=== PATIENT | male | born 1980 | race Caucasian/White ===

== ENCOUNTER → 2020-05-29 13:48 | Outpatient (BNVA) | payer BC, SELFPAY | PROVIDERS: Family Provider Family Medicine; PCP Family Medicine; Visit Provider Nurse Practitioner | DX: Z20.828 Contact with and (suspected) exposure to other viral communicable diseases (principal) | CPT/HCPCS: 87635 ==

== ENCOUNTER → 2021-03-03 15:56 | Outpatient (BNVA) | payer BC, SELFPAY | PROVIDERS: Family Provider Family Medicine; PCP Family Medicine; Visit Provider Family Medicine | DX: R53.83 Other fatigue (principal) | CPT/HCPCS: 84402; 84403 ==

== ENCOUNTER 2021-12-18 11:51 | Emergency (ER) | payer BC, SELFPAY ==
[2021-12-18 11:56] VITALS: BP 153/91; PULSE 78; RESP 16; TEMP 36.4; O2SAT 97
--- NOTE | 2021-12-18 12:16 | ED_ITS ---
HPI - General Adult General: Chief complaint: Skin/Abscess/Foreign Body Stated complaint: rash Time Seen by Provider: 12/18/21 12:06 History of Present Illness: Patient is a 41-year-old male who was exposed to poison oak 6 or 7 days ago while cleaning his car presenting to the emergency room with worsening itchiness and spreading lesion. Patient tells me that he was able to identify the plan as poison oak and since then has been taking Benadryl without any relief of symptoms. Due to significant itching patient came to the emergency room. Patient requests for steroids at this time. Denies nauesea/vomiting, fever/chill, chest pain, shortness of breath, abdominal pain, dysuria/hematuria/polyuria, diarrhea/melena/hematochezia. Onset:6-7 days ago Duration:6-7 days Location:home Severity:mild Associated symptoms: Reports rash; Deny chest pain, dyspnea, nausea, palpitations or vomiting Review of Systems Const: Denies: fever(s) or chills Eyes: Denies: change in vision ENMT: Denies: mouth pain Card: Denies: chest pain or palpitations Resp: Denies: dyspnea or non-productive cough GI: Denies: abdominal pain, nausea, vomiting or diarrhea : Denies: dysuria Musc: Denies: extremity pain Skin/Breast: Reports: rash and new lesions (+wheals over the L leg) Neuro: Denies: weakness in extremities Psych: Reports: other (Normal mood) Kelby/Lymph: Denies: easy bruising PFS ED PFSH: Medical History History of 2019 novel coronavirus disease (COVID-19) Surgical History (Updated 07/13/20 @ 10:35 by Lo Jackson DO) No pertinent past surgical history Family History Other Hyperlipidemia Social History Smoking and tobacco status: former smoker Alcohol intake: current Alcohol intake frequency: holidays/special occasions only Physical Exam Const: COMMON NORMALS: alert HENMT: COMMON NORMALS: atraumatic HEAD & SCALP: atraumatic MOUTH: moist mucous membranes not abnormal Eye: COMMON NORMALS: EOMs intact bilaterally and conjunctivae normal CONJUNCTIVA: Yes conjunctivae normal Neck/C-Spine: COMMON NORMALS: full ROM and supple Resp: COMMON NORMALS: normal respiratory effort and clear to auscultation bilaterally AUSCULTATION: clear to auscultation bilaterally Cardio: COMMON NORMALS: regular rate RATE: regular rate GI: COMMON NORMALS: Soft to palpation and non-tender PALPATION: Yes Soft to palpation Extremity: COMMON NORMALS: full ROM Neuro: SENSORIUM/ORIENTATION: Yes alert MOTOR EXAM: No Abnormal motor strength present and Other motor observations present (no focal motor deficits) Psych: COMMON NORMALS: speech normal SPEECH: Yes normal speech MOOD & AFFECT: Yes euthymic mood Skin: NARRATIVE SKIN EXAM: +mulitple nonconfluent erythematous mild wheals over the L leg with mild excoriation Course Vital Signs: Vital signs: Vital Signs Temperature 97.6 F 12/18/21 11:56 Pulse Rate 78 12/18/21 11:56 Respiratory Rate 16 12/18/21 11:56 Blood Pressure 153/91 12/18/21 11:56 Pulse Oximetry 97 12/18/21 11:56 MDM - General Adult Medical Decision Making 41-year-old male presented to the emergency room for concerns of pruritus after being exposed to poison oak. On physical exam, patient has mild indurated erythema that is nonconfluent over the left leg. Patient was prednisone 60 mg in the emergency room. Instructed patient to pe rform symptom relief with Oatmeal baths, Cool, wet compresses, and Ice packs. Rx prednisone 50mg x 5 days for pruritis and contact dermatitis Disposition: Discharge. Patient counseled regarding diagnostic impression, treatment plan. Patient given ED strict return precautions to return for continuation, worsening, or development of new symptoms. Instructed to f/u w/ PCP regarding symptoms today. Patient verbalized understanding. Discharge Plan Discharge Patient Disposition: Home Clinical Impression: Contact dermatitis due to poison oak Condition: Stable Prescriptions: New Biofreeze (menthol) 5 % gel 1 ea topical BID PRN (Reason: pain) 10 Days Qty: 1 0RF prednisone 50 mg tablet 50 mg PO DAILY PRN (Reason: contact dermatitis) 5 Days Qty: 5 0RF Discharge Orders: Discharge ED (Routine); Ordered 12/18/21 Ordered By: Isabella Galvez Discharge Diet: Advance as tolerated Discharge Activity: Increase activity as tolerated Activity Restrictions/Additional Instructions: Please consider the following: * Oatmeal baths * Cool, wet compresses * Ice packs * Aluminum acetate (Burow's solution) Coding Level of Care Code ED 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
[2021-12-18] MEDS: predniSONE 20 mg Tablet 60 MG PO (12:51)
== END 2021-12-18 12:57 | disposition home or self-care (01) ==
PROVIDERS: Emergency Provider Emergency Medicine
DX: L23.7 Allergic contact dermatitis due to plants, except food (principal)
CPT/HCPCS: 99283; J7512

== ENCOUNTER → 2022-01-02 17:03 | Outpatient (BNVA) | payer BC, SELFPAY | PROVIDERS: Visit Provider Registered Nurse Neonatal Intensive Care | DX: S92.501A Displaced unspecified fracture of right lesser toe(s), initial encounter for closed fracture (principal); W22.01XA Walked into wall, initial encounter | CPT/HCPCS: 73630 ==

== ENCOUNTER → 2023-01-25 08:29 | Outpatient (BNVA) | payer BC, SELFPAY | PROVIDERS: Visit Provider Family Medicine | DX: R53.83 Other fatigue (principal) | CPT/HCPCS: 80053; 80061; 84403; 84439; 84443; 85025 ==

== ENCOUNTER 2024-12-05 11:55 | Emergency (ER) | payer BC, SELFPAY ==
--- OUTSIDE RECORDS SUMMARY | 2024-09-15 05:00 | XMS_ITS ---
Author Organization [facility] Address [address] [place] [address] Care Team Providers Care Clothing Sales Assistant Name Role Phone None, None Primary Care Provider INEZ Proctor Unavailable [phone] Allergies No Known Allergies REASON FOR VISIT [INEZ] 4-MON. F/U Medications Medication SIG (Take, Route, Frequency, Duration) Notes Start Date End Date Status Testosterone Cypionate 200 MG/ML 1 mL Intramuscular Every 14 Days; Duration: 90 days Please supply patient with all appropriate injection supplies with multiple 1-3ccsyringes, multiple 18 gauge draw needles, and multiple 23 injection gauge needles 1 in. Provide appropriate alcohol prep pads. Nikolay Bell LPN 06/02/2024 03:50:42 PM [employer] > to include injection supplies, may alter to vials available 06/02/2024 Active Anastrozole 1 MG 0.5 tablet Orally twice a week; Duration: 30 days 09/15/2024 11/14/2024 Active Testosterone Cypionate 200 MG/ML 0.25 mL Intramuscular twice a week; Duration: 7 days Please supply patient with all appropriate injection supplies with multiple 1 ml syringes, multiple 18 gauge draw needles, and multiple 23 injection gauge needles 1 in. Provide appropriate alcohol prep pads. 09/15/2024 Active Social History Tobacco Use: Social History Observation Description Date Details (start date - stop date) Former Smoker 1996 - 1998 Tobacco Control (Standard) Question Answer Notes Tobacco use: Former smoker When did you start smoking? 1996 When did you stop smoking? 1998 How long has it been since you last smoked? 5-10 years Vital Signs Blood pressure systolic 128 mm Hg 09/16/19 25 Blood pressure diastolic 70 mm Hg 025 Heart Rate 84 /min 09/15/2024 Height 70 in 09/15/2024 Weight 213.4 lbs 09/15/2024 BMI 30.62 kg/m2 09/15/2024 Oximetry 99 % 09/15/2024 Encounters Encounter Location Date Provider Diagnosis [facility] [address] [facility] [place] [address] 09/15/2024 INEZ SYED Hypogonadism in male E29.1 ; Chronic fatigue, unspecified R53.82 and Exercise counseling Z71.82 Assessments Encounter Date Diagnosis (ICD Code) Assessment Notes Treatment Notes Treatment Clinical Notes Section Notes 09/15/2024 Hypogonadism in male (ICD-10 - E29.1) The patient and I agree on continuing with agreed regimen of TRT with t. cypionate, but will adjust dosage from 200mg/0.5cc every 7 to 0.25 twice weekly to see if helping labs and symptoms. Discussed labs that were completed prior to this office visit. Will also start patient on 0.5mg anastrazole twice weekly. Will reassess at next office visit. We reviewed these in detail today. We again discussed diet and exercise and the importance of this, and patient reports to be trying to better this. We discussed risks vs benefits on TRT, especially assisted supplementation. For now, no need for further intervention or workup. Plan is to have patient return care in 3-4 months with repeat surveillance labs and continued reassessment. Vitals continue to remain stable. No new complaints mentioned. Through shared decision making, we are in agreement with this plan. All questions that were asked, were answered, and he is satisfied with this plan. He understands to return care sooner if needed. 09/15/2024 Chronic fatigue, unspecified (ICD-10 - R53.82) The patient and I agree on continuing with agreed regimen of TRT with t. cypionate, but will adjust dosage from 200mg/0.5cc every 7 to 0.25 twice weekly to see if helping labs and symptoms. Discussed labs that were completed prior to this office visit. Will also start patient on 0.5mg anastrazole twice weekly. Will reassess at next office visit. We reviewed these in detail today. We again discussed diet and exercise and the importance of this, and patient reports to be trying to better this. 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 For now, no need for further intervention or workup. Plan is to have patient return care in 3-4 months with repeat surveillance labs and continued reassessment. Vitals continue to remain stable. No new complaints mentioned. Through shared decision making, we are in agreement with this plan. All questions that were asked, were answered, and he is satisfied with this plan. He understands to return care sooner if needed. 09/15/2024 Exercise counseling (ICD-10 - Z71.82) The patient and I agree on continuing with agreed regimen of TRT with t. cypionate, but will adjust dosage from 200mg/0.5cc every 7 to 0.25 twice weekly to see if helping labs and symptoms. Discussed labs that were completed prior to this office visit. Will also start patient on 0.5mg anastrazole twice weekly. Will reassess at next office visit. We reviewed these in detail today. We again discussed diet and exercise and the importance of this, and patient reports to be trying to better this. 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 For now, no need for further intervention or workup. Plan is to have patient return care in 3-4 months with repeat surveillance labs and continued reassessment. Vitals continue to remain stable. No new complaints mentioned. Through shared decision making, we are in agreement with this plan. All questions that were asked, were answered, and he is satisfied with this plan. He understands to return care sooner if needed. Plan Of Treatment Medication Medication Name Sig Start Date Stop Date Notes Anastrozole 1 MG 0.5 tablet Orally twice a week; Duration: 30 days 09/15/2024 11/14/2024 Testosterone Cypionate 200 MG/ML 0.25 mL Intramuscular twice a week; Duration: 7 days 09/15/2024 Please supply patient with all appropriate injection supplies with multiple 1 ml syringes, multiple 18 gauge draw needles, and multiple 23 injection gauge needles 1 in. Provide appropriate alcohol prep pads. Pending Test Test Name Order Date TESTOSTERONE, FREE, BIOVAILA BLE AND TOTAL, MALES (ADULT), IMMUNOASSAY (00075) 09/15/2024 HEPATIC FUNCTION PANEL (04226) CBC (H/H, RBC, INDICES, WBC, PLT) (1759) 09/15/2024 ESTRADIOL (4021) 09/15/2024 PSA, TOTAL (5363) 09/15/2024 Next Appt Details Follow Up: 3-4 months w. lab s, Reason: Provider Name:INEZANGIE SYED, 01/08/2025 10:45:00 AM, [address] [place] [address], [id number], Progress Notes * Ed LEA BDOB:1979 (44 yo M)Acc No.[id number]:09/15/2024 Progress Notes Patient: Ed SALAZAR Provider: April Syed NP :1980 A ge:44 Y S ex:Male Date:09/15/2024 Address:[address] [place], [place] [id number] Subjective: * Chief Complaints: * 1 . [INEZ] 4-MON. F/U. * HPI: * : 44 yo male, yo male, nonsmoker, previously here due to symptoms of chronic fatigue, low libido, and decreased mood. Continues to deny bothersome ED or LUTS. Based on low T labs and symptoms, he was started on TRT with T. cypionate at 200mg every 14 days on 05/2024. Here today for 3-4 month f/u with labs and symptom reassessment. No interval issues or changes. He reports started completing injections weekly at 0.5cc. He also reports of increased moodiness/emotional. H e reports symptoms to be improved. TT level at 390 with normal safety labs (scanned in). He reports to continually trying to improve exercise and diet regimen. * ROS: G eneral / Constitutional: Patient denies chills, fever, change in appetite. A&O Gastrointestinal: Patient denies abdominal pain, nausea, vomiting, diarrhea. Genitourinary: Comments See HPI for details. * Medical History: L ow Libido, Chronic Fatigue. * Surgical History: O ral Surgery 2008. * Family History: F ather: alive, prostate cancer. M other: alive. * Social History: T obacco Use: T obacco Control (Standard) T obacco use: F ormer smoker, W kyle did you start smoking? 1 06/21/1995, W hen did you stop smoking? 1 06/21/1997, H ow long has it been since you last smoked? 5 -10 years. * Medications: T aking Testosterone Cypionate 200 MG/ML Solution 1 mL Intramuscular Every 14 Days Please supply patient with all appropriate injection supplies with multiple 1-3ccsyringes, multiple 18 gauge draw needles, and multiple 23 injection gauge needles 1 in. Provide appropriate alcohol prep pads., Notes to Pharmacist: Nikolay Bell LPN 06/02/2024 03:50:42 PM [employer] > to include injection supplies, may alter to vials available, Medication List reviewed and reconciled with the patient * Allergies: N .K.D.A. Objective: * Vitals: H R:84/min, BP:128/70mm Hg, Wt:213.4lbs, BMI:30.62Index, Ht: 70 in, Oxygen sat %:99%, Ht-cm: 177.8 cm, Wt-k.8 kg. * P ast Orders: Lab:FSH AND LH (7137) * Collection Date 08/30/2024 05/26/2024 Collection Time 06:35 AM 10:00 AM Order Date 08/29/2024 05/26/2024 FSH <0.7 L (Ref Range: 1.4-12.8 mIU/mL) 3.8 (Ref Range: 1.4-12.8 mIU/mL) LH 0.2 L (Ref Range: 1.5-9.3 mIU/mL) 3.3 (Ref Range: 1.5-9.3 mIU/mL) * Lab:ESTRADIOL (4021) * Collection Date 08/30/2024 05/26/2024 Collection Time 06:35 AM 10:00 AM Order Date 08/29/2024 05/26/2024 ESTRADIOL 42 H (Ref Range: < OR = 39 pg/mL) 16 (Ref Range: < OR = 39 pg/mL) * Lab:PROLACTIN (746) * Collection Date 08/30/2024 05/26/2024 Collection Time 06:35 AM 10:00 AM Order Date 08/29/2024 05/26/2024 PROLACTIN 10.4 (Ref Range: 2.0-18.0 ng/mL) 7.5 (Ref Range: 2.0-18.0 ng/mL) ???Lab:TESTOSTERONE, FREE (DIALYSIS) AND TOTAL,MS (40226) (Order Date - 08/29/2024) (Collection Date & Time - 08/30/2024 06:35 AM)?Value Reference Range?TESTOSTERONE, TOTAL, [id number] - ng/dL ?TESTOSTERONE, FREE65.335.0-155.0 - pg/mL?Notes: [employer], support 09/06/2024 11:05:08 : This order was created by the Interface. * Examination: G eneral Examination: GENERAL APPEARANCE: a lert, well hydrated, in no distress.? HEAD: n ormocephalic. EYES: P ERRL. SKIN: g ood turgor, warm, and dry. HEART: n o signs of abnormalities. LUNGS: n o signs of distress. ABDOMEN: n ormal, soft, nontender, nondistended. MALE GENITOURINARY: r efer to the HPI and Assessment/Plan.? MUSCULOSKELETAL: f ull ROM. EXTREMITIES: n ormal. PERIPHERAL PULSES: n ormal. NEUROLOGIC: A &O. Assessment: * Assessment: 1. H ypogonadism in male - E29.1 (Primary) 2 . C hronic fatigue, unspecified - R53.82 3 . E xercise counseling - Z71.82 The patient and I agree on c ontinuing with agreed regimen of TRT with t. cypionate, but will adjust dosage from 200mg/0.5cc every 7 to 0.25 twice weekly to see if helping labs and symptoms. Discussed labs that were completed prior to this office visit. Will also start patient on 0.5mg anastrazole twice weekly. Will reassess at next office visit. Mya curiel reviewed these in detail today. We again discussed diet and exercise and the importance of this, and patient reports to be trying to better this. 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 For now, no need for further intervention or workup. Plan is to have patient return care in 3-4 months with repeat surveillance labs and continued reassessment. Vitals continue to remain stable. No new complaints mentioned. Through shared decision making, we are in agreement with this plan. All questions that were asked, were answered, and he is satisfied with this plan. He understands to return care sooner if needed. Plan: * Treatment: * Follow Up: 3 -4 months w. labs * Billing Information: * Visit Code: 19528 Office Visit, Est Pt., Level 3. Modifiers: 25 * Procedure Codes: * Electronic signature of MARY ALICE SYED APRN on 12/05/2024 at 12:11 PM CDT Sign off status: Pending * Provider: April Syed NP Date: 0 09/15/2024 Generated for Jeannette alcantara/Catia/Jones on: 0 12/05/2024 12:11 PM CDT History and Physical Notes * Examination Category Sub-Category Detail Notes Category Not es General Examination GENERAL APPEARANCE: alert, w ell hydrated, in no distress HEAD: normocephalic EYES: PERRL HEART: no signs of abnormal ities LUNGS: no signs of distress ABDOMEN: normal, soft, nonten parker, nondistended NEUROLOGIC: A&O SKIN: good turgor, warm, a nd dry EXTREMITIES: normal PERIPHERAL PULSES: normal MUSCULOSKELETAL: full ROM MALE GENITOURINARY: refer to the HPI and Assessment/Plan
--- OUTSIDE RECORDS SUMMARY | 2024-09-22 03:45 | XMS_ITS ---
Author Organization [facility] [employer] Address [address] [place] [id number] Care Team Providers Care Knocker Off Name Role Phone None, None Primary Care Provider INEZ Proctor Unavailable [phone] REASON FOR VISIT [INEZ] LABS Encounters Encounter Location Date Provider Diagnosis [facility] [address] [place] [address] 09/22/2024 INEZ SYED Plan Of Treatment Next Appt Details Provider Name:INEZ SYED, 01/08/2025 10:45:00 AM, [address] [place] [address], [place], [phone], Progress Notes * Ed LEA BDOB:1979 (44 yo M)Acc No.[id number]:09/22/2024 Progress Note Patient: Thiago SALAZARemy Lisset Provider: April Syed NP :1980 A ge:44 Y S ex:Male Date:09/22/2024 Address:[address] [place], [place] [id number] Subjective: * Chief Complaints: * 1 . [INEZ] LABS. * Medical History: Objective: * Vitals: Assessment: Plan: * Treatment: * Billing Information: * Visit Code: * Procedure Codes: * Electronic signature of MARY ALICE SYED APRN on 12/05/2024 at 12:11 PM CDT Sign off status: Pending * Provider: April Syed NP Date: 0 09/22/2024 Generated for Jeannette alcantara/Catia/Jones on: 0 12/05/2024 12:11 PM CDT
--- OUTSIDE RECORDS SUMMARY | 2024-12-05 12:11 | XMS_ITS | Clinical Summary ---
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
--- OUTSIDE RECORDS SUMMARY | 2024-12-05 12:11 | XMS_ITS | Patient Health Record ---
Author Organization [employer] Address [address] [place] [address] Care Team Providers Care Bulb Sorter Name Role Phone None, None Primary Care Provider Unavailtemitope INEZ Guzman Unavailable [phone] Naina Amanda Unavailable [phone] Allergies No Known Allergies Results Component Value Reference Range Notes TESTOSTERONE, FREE, BIOAVAIL ABLE AND TOTAL, MS (03593) Reviewed date:05/30/2024 10:44:11 AM Interpretation: Performing Lab:Z[facility], 24x7 [facility] [address], [address], R[place]midMG[address] Silvia Bailey MD,PhD Notes/Report: 0 0 0 0 ALBUMIN 4.7 3.6-5.1 g/dL SEX HORMONE BINDING GLOBULIN 20.9 10-50 nmol/L TESTOSTERONE, FREE 45.5 46.0-224.0 pg/mL TESTOSTERONE,BIOAVAILABLE 97.6 110.0-575.0 ng/ dL TESTOSTERONE, TOTAL, MS 573 726-4022 ng/dL Men with clinically significant hypogonadal symptoms and testosterone values repeatedly in the range of the 200-300 ng/dL or less, may benefit from testosterone treatment after adequate risk and benefits counseling. For additional information, please refer to https://education.[employer].com/faq/GGB884 (This link is being provided for informational/educational purposes only.) (Note) This test was developed and its analytical performance characteristics have been determined by [facility]. It has not been cleared or approved by the FDA. This assay has been validated pursuant to the CLIA regulations and is used for clinical purposes. [facility] [address] [address],[address] [facility] [address] Silvia Bailey MD, PhD FSH AND LH (7137) Reviewed date:05/30/2024 10:44:16 AM Interpretation: Performing Lab:[facility] ESP[facility]-Ywyezm27688 Khloe Moss[address] Niyah De Oliveira MD Notes/Report: 0 0 0 0 FSH 3.8 1.4-12.8 mIU/mL LH 3.3 1.5-9.3 mIU/mL ESTRADIOL (4021) Reviewed date:05/30/2024 10:44:19 AM Interpretation: Performing Lab:Ricardo ESPARZAa101Khloe Orourke[address] Niyah De Oliveira MD Notes/Report: 0 0 0 0 ESTRADIOL 16 < OR = 39 pg/mL Reference range established on post-pubertal patient population. No pre-pubertal reference range established using this assay. For any patients for whom low Estradiol levels are anticipated (e.g. males, pre-pubertal children and hypogonadal/post-menopausal females), the [facility] Estradiol, Ultrasensitive, LCMSMS assay is recommended (order code 62673). Please note: patients being treated with the drug fulvestrant (Faslodex(R)) have demonstrated significant interference in immunoassay methods for estradiol measurement. The cross reactivity could lead to falsely elevated estradiol test results leading to an inappropriate clinical assessment of estrogen status. iFit order code [id number]-Ucruztvux, Ultrasensitive LC/MS/MS demonstrates negligible cross reactivity with fulvestrant. PROLACTIN (746) Reviewed date:05/30/2024 10:44:13 AM Interpretation: Performing Lab:[facility] ESPARZAa10101 Khloe Moss[address] Niyah De Oliveira MD Notes/Report: 0 0 0 0 PROLACTIN 7.5 2.0-18.0 ng/mL FSH AND LH (7137) Reviewed date:09/10/2024 02:58:05 PM Interpretation: Performing Lab:Ricardo ESPARZAa1Khloe Maradiaga[address] Niyah De Oliveira MD Notes/Report: 0 0 0 FSH <0.7 1.4-12.8 mIU/mL LH 0.2 1.5-9.3 mIU/mL ESTRADIOL (4021) Reviewed date:09/10/2024 02:58:10 PM Interpretation: Performing Lab:[facility] ESP[facility]ZA-Egxgrv08576 [address] MossRxuyoeIJ[address] Niyah De Oliveira MD Notes/Report: 0 0 0 ESTRADIOL 42 < OR = 39 pg/mL Reference range established on post-pubertal patient population. No pre-pubertal reference range established using this assay. For any patients for whom low Estradiol levels are anticipated (e.g. males, pre-pubertal children and hypogonadal/post-menopausal females), the [facility] Estradiol, Ultrasensitive, LCMSMS assay is recommended (order code 16527). Please note: patients being treated with the drug fulvestrant (Faslodex(R)) have demonstrated significant interference in immunoassay methods for estradiol measurement. The cross reactivity could lead to falsely elevated estradiol test results leading to an inappropriate clinical assessment of estrogen status. iFit order code 55191-Rrbpycxre, Ultrasensitive LC/MS/MS demonstrates negligible cross reactivity with fulvestrant. NO COLLECTION DATE RECEIVED. WE HAVE USED THE DATE THE SPECIMEN WAS RECEIVED BY THIS LABORATORY THE COLLECTION DATE. IF THIS IS INCORRECT, PLEASE CONTACT CLIENT SERVICES. PHONE NUMBER: [phone] PROLACTIN (164) Reviewed date:09/10/2024 02:58:01 PM Interpretation: Performing Lab:[facility]-Qlwkkc[address] Domingo MossUjmhucSS[address] Niyah De Oliveira MD Notes/Report: 0 0 0 PROLACTIN 10.4 2.0-18.0 ng/mL TESTOSTERONE, FREE (DIALYSIS ) AND TOTAL,MS (42298) Reviewed date:09/10/2024 02:57:57 PM Interpretation: Performing Lab:[facility], [facility] [address], [address], UdgtczspqfRT[address] Silvia Bailey MD,PhD Notes/Report: 0 TESTOSTERONE, TOTAL, MS 845 [address]-4706 ng/dL Men with clinically significant hypogonadal symptoms and testosterone values repeatedly in the range of the 200-300 ng/dL or less, may benefit from testosterone treatment after adequate risk and benefits counseling. For additional information, please refer to https://education.[employer].com/faq/RXH465 (This link is being provided for informational/educational purposes only.) (Note) This test was developed and its analytical performance characteristics have been determined by [facility]. It has not been cleared or approved by the FDA. This assay has been validated pursuant to the CLIA regulations and is used for clinical purposes. TESTOSTERONE, FREE 65.3 35.0-155.0 pg/mL (Note) This test was developed and its analytical performance characteristics have been determined by [facility]. It has not been cleared or approved by the FDA. This assay has been validated pursuant to the CLIA regulations and is used for clinical purposes. [facility] [address] [address],[address] [facility] [address] Silvia Bailey MD, PhD NO COLLECTION DATE RECEIVED. WE HAVE USED THE DATE THE SPECIMEN WAS RECEIVED BY THIS LABORATORY THE COLLECTION DATE. IF THIS IS INCORRECT, PLEASE CONTACT CLIENT SERVICES. PHONE NUMBER: [phone] Reason For Referral No Information Medications Medication SIG (Take, Route, Frequency, Duration) Notes Start Date End Date Status Needle (Disp) 18G X 1 Draw medication with this needle then change to 22 gauge needle for intramuscular injection; Duration: 90 days 10/20/2024 Active Testosterone Cypionate 200 MG/ML 1 mL Intramuscular Every 14 Days; Duration: 90 days Please supply patient with all appropriate injection supplies with multiple 1-3ccsyringes, multiple 18 gauge draw needles, and multiple 23 injection gauge needles 1 in. Provide appropriate alcohol prep pads. Nikolay Bell LPN 06/02/2024 03:50:42 PM MEDICAL ASSISTANT SECRETARY > to include injection supplies, may alter to vials available 06/02/2024 Active Syringe (Disposable) 3 ML as directed; Duration: 90 days 10/20/2024 Active Needle (Disp) 22G X 1 Inject Testosterone Intramuscularly As Directed; Duration: 90 days 10/20/2024 Active Testosterone Cypionate 200 MG/ML 0.25 mL [...] been since you last smoked? 5-10 years Problems Problem Type SNOMED Code ICD Code Onset Dates Problem Status W/U Status Risk Notes Problem Chronic fatigue syndrome (disorder) (56269304) Chronic fatigue, unspecified (R53.82) Active confirmed Problem Male hypogonadism (25372314) Hypogonadism in male (E29.1) Active confirmed Vital Signs Heart Rate 84 /min 09/15/2024 Oximetry 99 % 09/15/2024 Blood pressure diastolic 70 mm Hg 09/15/2024 Height 70 in 09/15/2024 Blood pressure systolic 128 mm Hg 09/15/2024 Weight 213.4 lbs 09/15/2024 BMI 30.62 kg/m2 09/15/2024 Encounters Encounter Location Date Provider Diagnosis [facility] [address] [facility] [place] [address] 05/26/2024 INEZ PEVRIL [facility] [address] [facility] [place] [address] 05/26/2024 INEZ PEVRIL Hypogonadism in male E29.1 ; Chronic fatigue, unspecified R53.82 and Exercise counseling Z71.82 [facility] [address] [facility] [place] [address] 09/15/2024 INEZ PEVRIL Hypogonadism in male E29.1 ; Chronic fatigue, unspecified R53.82 and Exercise counseling Z71.82 [facility] [address] [facility] [place] [address] 08/29/2024 Naina [place] Hypogonadism in male E29.1 [facility] [address] [facility] [place] [address] 05/30/2024 INEZ PEVRIL Hypogonadism in male E29.1 [facility] [address] [facility] [place] [address] 06/09/2024 Naina [place] [facility] [address] [facility] [place] [address] 06/30/2024 Naina Vasiliy [facility] [address] [facility] [place] [address] 06/30/2024 Naina [place] [facility] [address] [facility] [place] [address] 08/21/2024 Naina Vasiliy [facility] [address] [facility] [place] [address] 08/29/2024 Naina Vasiliy Chronic fatigue, unspecified R53.82 and Hypogonadism in male E29.1 [facility] [address] [facility] [place] [address] 10/15/2024 INEZ SYED [facility] [address] [facility] [place] [address] 08/14/2024 Naina Vasiliy Assessments Encounter Date Diagnosis (ICD Code) Assessment Notes Treatment Notes Treatment Clinical Notes Section Notes 05/26/2024 Chronic fatigue, unspecified (ICD-10 - R53.82) We discussed the concept behind his hypogonadal symptoms in detail. We discussed on gaining lab work prior to moving forward with TRT and discussed on aua guidelines require for testosterone deficiency. Patient is interested in starting with TRT if appropriate. I reviewed all side effects of TRT depending on which route is agreed upon including: mood swings, hot flashes, acne, weight gain, increase blood counts, worsening sleep apnea, prostate growth, among others. We discussed risks vs benefits on testosterone supplementation especially intermodal customer service supplementation including close surveillance and follow up with repeat lab. If starting on TRT, we will plan for appropriate followup and for reevaluation with continued mentioned safety labs. Previous labs were reviewed, and patient needs confirmation with repeat labs. He is possibly interested in moving forward with testopel if that is an option. All ways of administration were discussed in detail including jatenzo versus kyzatrex, injections, testosterone pellets, and/or topicals. Pending insurance and financial constraints, patient is leaning towards starting TRT if he meets guideline criteria. Labs will be completed today, and I will call him with results, and schedule followup at that time. Patient now understands the importance of appropriate diet and exercise regimen. For now, and through shared decision making we are in agreement with no further workup or intervention at this time with care plan, aside from what was mentioned. Vitals checked. History reviewed. Exam as mentioned above. Patient has no other voiced concerns or questions. Patient will call back or return care sooner if further issues/questions. All questions that were asked, were answered. Patient satisfied with plan. 05/26/2024 Hypogonadism in male (ICD-10 - E29.1) We discussed the concept behind his hypogonadal symptoms in detail. We discussed on gaining lab work prior to moving forward with TRT and discussed on aua guidelines require for testosterone deficiency. Patient is interested in starting with TRT if appropriate. I reviewed all side effects of TRT depending on which route is agreed upon including: mood swings, hot flashes, acne, weight gain, increase blood counts, worsening sleep apnea, prostate growth, among others. We discussed risks vs benefits on testosterone supplementation especially skilled nursing supplementation including close surveillance and follow up with repeat lab. If starting on TRT, we will plan for appropriate followup and for reevaluation with continued mentioned safety labs. Previous labs were reviewed, and patient needs confirmation with repeat labs. He is possibly interested in moving forward with testopel if that is an option. All ways of administration were discussed in detail including jatenzo versus kyzatrex, injections, testosterone pellets, and/or topicals. Pending insurance and financial constraints, patient is leaning towards starting TRT if he meets guideline criteria. Labs will be completed today, and I will call him with results, and schedule followup at that time. Patient now understands the importance of appropriate diet and exercise regimen. For now, and through shared decision making we are in agreement with no further workup or intervention at this time with care plan, aside from what was mentioned. Vitals checked. History reviewed. Exam as mentioned above. Patient has no other voiced concerns or questions. Patient will call back or return care sooner if further issues/questions. All questions that were asked, were answered. Patient satisfied with plan. 05/30/2024 Hypogonadism in male (ICD-10 - E29.1) 08/29/2024 Hypogonadism in male (ICD-10 - E29.1) 08/29/2024 Chronic fatigue, unspecified (ICD-10 - R53.82) 09/15/2024 Hypogonadism in male (ICD-10 - E29.1) [...] discussed risks vs benefits on TRT, especially skilled nursing supplementation. For now, no need for further [...] understands to return care sooner if needed. 08/29/2024 Hypogonadism in male (ICD-10 - E29.1) 09/15/2024 Chronic fatigue, unspecified (ICD-10 - R53.82) [...] discussed risks vs benefits on TRT, especially skilled nursing supplementation. For now, no need for further [...] understands to return care sooner if needed. 05/26/2024 Exercise counseling (ICD-10 - Z71.82) We discussed the concept behind his hypogonadal symptoms in detail. We discussed on gaining lab work prior to moving forward with TRT and discussed on aua guidelines require for testosterone deficiency. Patient is interested in starting with TRT if appropriate. I reviewed all side effects of TRT depending on which route is agreed upon including: mood swings, hot flashes, acne, weight gain, increase blood counts, worsening sleep apnea, prostate growth, among others. We discussed risks vs benefits on testosterone supplementation especially skilled nursing supplementation including close surveillance and follow up with repeat lab. If starting on TRT, we will plan for appropriate followup and for reevaluation with continued mentioned safety labs. Previous labs were reviewed, and patient needs confirmation with repeat labs. He is possibly interested in moving forward with testopel if that is an option. All ways of administration were discussed in detail including jatenzo versus kyzatrex, injections, testosterone pellets, and/or topicals. Pending insurance and financial constraints, patient is leaning towards starting TRT if he meets guideline criteria. Labs will be completed today, and I will call him with results, and schedule followup at that time. Patient now understands the importance of appropriate diet and exercise regimen. For now, and through shared decision making we are in agreement with no further workup or intervention at this time with care plan, aside from what was mentioned. Vitals checked. History reviewed. Exam as mentioned above. Patient has no other voiced concerns or questions. Patient will call back or return care sooner if further issues/questions. All questions that were asked, were answered. Patient satisfied with plan. 09/15/2024 Exercise counseling (ICD-10 - Z71.82) The [...] discussed risks vs benefits on TRT, especially skilled nursing supplementation. For now, no need for further [...] understands to return care sooner if needed. 05/26/2024 We discussed the concept behind his hypogonadal symptoms in detail. We discussed on gaining lab work prior to moving forward with TRT and discussed on aua guidelines require for testosterone deficiency. Patient is interested in starting with TRT if appropriate. I reviewed all side effects of TRT depending on which route is agreed upon including: mood swings, hot flashes, acne, weight gain, increase blood counts, worsening sleep apnea, prostate growth, among others. We discussed risks vs benefits on testosterone supplementation especially skilled nursing supplementation including close surveillance and follow up with repeat lab. If starting on TRT, we will plan for appropriate followup and for reevaluation with continued mentioned safety labs. No previous labs to be reviewed. All ways of administration were discussed in detail including jatenzo versus kyzatrex, injections, testosterone pellets, and/or topicals. Pending insurance and financial constraints, patient is leaning towards starting TRT if he meets guideline criteria. Labs will be completed today, and I will call him with results, and schedule followup at that time. Patient now understands the importance of appropriate diet and exercise regimen. For now, and through shared decision making we are in agreement with no further workup or intervention at this time with care plan, aside from what was mentioned. Vitals checked. History reviewed. Exam as mentioned above. Patient has no other voiced concerns or questions. Patient will call back or return care sooner if further issues/questions. All questions that were asked, were answered. Patient satisfied with plan. Plan Of Treatment Pending Test Test Name Order Date TESTOSTERONE, FREE, BIOVAILA BLE AND TOTAL, MALES (ADULT), IMMUNOASSAY (19180) 09/15/2024 HEPATIC FUNCTION PANEL (31032) CBC (H/H, RBC, INDICES, WBC, PLT) (1759) 09/15/2024 CBC (H/H, RBC, INDICES, WBC, PLT) (1759) 05/30/2024 ESTRADIOL (4021) 09/15/2024 ESTRADIOL (4021) 05/30/2024 TESTOSTERONE, TOTAL, MALES (ADULT), IA ( 873) 05/30/2024 PSA, TOTAL (5363) 05/30/2024 PSA, TOTAL (5363) 09/15/2024 TESTOSTERONE, FREE (DIALYSIS) AND TOTAL, MS ([id number]) 08/29/2024 Next Appt Details Provider Name:INEZ SYED, 01/08/2025 10:45:00 AM, [address] [facility] [place], [address], Insurance Providers Payer Name Payer Address Payer Phone Subscriber Number Group Number Insured Name Patient Relationship to Insured Coverage Start Date Coverage End Date [place] [address] [place] [id number] Ed Narayan Self - patient is the insured Medications Administered Medication Instructions Date of Administration Dosage Notes Testosterone 08/29/2024 0.5 mL Medical (General) History Medical History History ICD Code Low Libido Chronic Fatigue Surgical History Surgery Date(Month/Year) Oral Surgery 2008
--- OUTSIDE RECORDS SUMMARY | 2024-12-05 12:11 | XMS_ITS | Encounter Summary ---
Author Organization [employer] [facility] Address [address] [place] [address] Care Team Providers Care Help Desk Manager Name Role Phone Unavailable Primary Care Provider Unavailabl e Encounter Details Date Type Department Care Team (Late st Contact Info) Description 01/30/2001 Outpatient Historical [facility], Avery Chen MD [address] [phone] Hypertrophy of breast (Primary Dx) Social History Tobacco Use Types Packs/Day Years Used Date Smoking Tobacco: Never Assessed Sex and Gender Information Value Date Recorded Sex Assigned at Not on file Legal Sex Male 4:17 AM [employer] Gender Identity Not on file Sexual Orientation Not on file documented as of this encounter Plan of Treatment Not on file documented as of this encounter Visit Diagnoses Diagnosis Hypertrophy of breast- Primary documented in this encounter
== END 2024-12-05 12:32 | disposition left against medical advice (07) ==
LOC: ER 12:09
PROVIDERS: Emergency Provider Family Medicine
DX: Z01.89 Encounter for other specified special examinations (principal); Z53.21 Procedure and treatment not carried out due to patient leaving prior to being seen by health care provider
CPT/HCPCS: J1100